=== PATIENT | female | born 1970 | race Caucasian/White ===

== ENCOUNTER → 2023-11-20 | Day surgery (SDC) | payer OTHER ==
[~2023-11-20] MED LIST: ALBUTEROL0.63 MG/3 NEB; DEXMEDETOMIDINE HCL 200 MCG/2 ML VIAL ONE; IRBESARTAN150 MG PO; LIDOCAINE HCL 2% LOCAL INJ 5 ML SDV VIAL INJ ONE; MIDAZOLAM HCL 2 MG/2 ML VIAL ONE; PROPOFOL IV EMULSION 10 MG/ML 50 ML VIAL IV ONE
[2023-11-20] MEDS: LACTATED RINGER'S 1,000 ML ONE (12:16)
[2023-11-20 15:15] VITALS: BP 121/78; PULSE 71; RESP 17; TEMP 97.9; O2SAT 97
== END | disposition home or self-care (01) ==
LOC: OR 11:03
PROVIDERS: ATTEND Internal Medicine Gastroenterology
DX: Z12.11 Encounter for screening for malignant neoplasm of colon (principal); D12.2 Benign neoplasm of ascending colon; K62.1 Rectal polyp; Q85.89 Other phakomatoses, not elsewhere classified; K57.30 Diverticulosis of large intestine without perforation or abscess without bleeding; K62.89 Other specified diseases of anus and rectum; K64.8 Other hemorrhoids; Z71.3 Dietary counseling and surveillance; I10 Essential (primary) hypertension; J44.9 Chronic obstructive pulmonary disease, unspecified; E11.9 Type 2 diabetes mellitus without complications; F17.210 Nicotine dependence, cigarettes, uncomplicated; Z71.6 Tobacco abuse counseling; Z88.1 Allergy status to other antibiotic agents; Z01.810 Encounter for preprocedural cardiovascular examination; Z79.899 Other long term (current) drug therapy; Z68.30 Body mass index [BMI] 30.0-30.9, adult
CPT/HCPCS: 45385; 93005; J2250; J7121; 45378; J2003